=== PATIENT | male | born 1985 | race African-American/Black ===

== ENCOUNTER 2017-03-01 19:12 | Emergency (ER) | payer OTHER ==
[~2017-03-01] VITALS: Ht 188 cm; Wt 86.7 kg
[2017-03-01] MEDS ORDERED: BACTRIM,SEPT1 TABLET PO (19:45)
[2017-03-01 19:53] VITALS: BP 122/84
== END 2017-03-01 19:53 | disposition home or self-care (01) ==
LOC: EME 19:12
DX: L02.01 Cutaneous abscess of face (principal)
CPT/HCPCS: 99281; 99284

== ENCOUNTER 2017-03-08 14:07 | Emergency (ER) | payer OTHER ==
[~2017-03-08] VITALS: Ht 188 cm; Wt 85.0 kg
[~2017-03-08 14:07] MED LIST: BACTRIM,SEPT1 TABLET PO
[2017-03-08 14:46] VITALS: BP 112/70
[2017-03-08] MEDS ORDERED: KEFLEX500 MG PO (15:44)
[2017-03-08] MEDS ORDERED: MUPIROCIN15 GM TP (15:45)
== END 2017-03-08 16:15 | disposition home or self-care (01) ==
LOC: EME 14:07
DX: L01.00 Impetigo, unspecified (principal)
CPT/HCPCS: 80048; 85027; 99281; 99284